=== PATIENT | female | born 1995 | race Caucasian/White ===

== ENCOUNTER 2023-01-30 14:46 | Outpatient (CLI) | payer OTHER, SELFPAY ==
[2023-01-30 18:53] LABS: Chlamydia DNA Amplified* NOT DETECTED (No Detected); GC DNA Amplified* NOT DETECTED (No Detected)
== END 2023-01-30 14:47 | disposition home or self-care (01) ==
PROVIDERS: Visit Provider Physician Assistant
DX: Z34.91 Encounter for supervision of normal pregnancy, unspecified, first trimester (principal); Z3A.12 12 weeks gestation of pregnancy
CPT/HCPCS: 76801; 82565; 82570; 84156; 84450; 84460; 84520; 86592; 86703; 86762; 86787; 86803; 86850; 86900; 86901; 87086; 87340; 87491; 87591

== ENCOUNTER 2023-02-11 07:06 | Outpatient (CLI) | payer OTHER, SELFPAY ==
--- NOTE | 2023-02-11 07:15 | CRLHL7_ITS ---
For Patients: As a result of the Century Cures Act, medical imaging exams and procedure reports are released immediately into your electronic medical record. You may view this report before your referring provider. If you have questions, please contact your health care provider. INDICATION: FOLLOW UP ENLARGED YOLK SAC COMPARISON: 8.25.23 TECHNIQUE: Real-time ag-scale imaging of the pelvis was performed. FINDINGS: Sonographic imaging demonstrates a single living intrauterine gestation. The embryo demonstrates a regular cardiac rate measuring 150 beats per minute. The embryo`s crown-rump length measurement of 7.3 cm corresponds to a gestational age of 13 weeks 3 days with a sonographic due date of 08/16/2023. The yolk sac is not visualized. There are no gross abnormalities noted within the embryo at this early state of development. The gestational sac has a normal appearance. There is no evidence of a perigestational hemorrhage. The amount of fluid within the sac appears appropriate for gestational age. The cervix is closed. The myometrium appears normal. 2.3 cm corpus luteal cyst right ovary. There are no suspicious fluid collections noted in the cul-de-sac. IMPRESSION: Gestational age calculated at 13 weeks 3 days with a sonographic due date of 08/16/2023. Yolk sac not visualized on today`s study. Dictated by Michael Trujillo MD @ 02/11/2023 9:28:16 AM (Electronically Signed)
== END 2023-02-11 07:07 | disposition home or self-care (01) ==
PROVIDERS: Visit Provider Physician Assistant
DX: Z34.91 Encounter for supervision of normal pregnancy, unspecified, first trimester (principal); Z3A.13 13 weeks gestation of pregnancy
CPT/HCPCS: 76816

== ENCOUNTER 2023-04-01 12:03 | Outpatient (CLI) | payer OTHER, SELFPAY ==
--- NOTE | 2023-04-01 12:15 | CRLHL7_ITS ---
For Patients: As a result of the Century Cures Act, medical imaging exams and procedure reports are released immediately into your electronic medical record. You may view this report before your referring provider. If you have questions, please contact your health care provider. INDICATION: Evaluate anatomy. COMPARISON: 02/11/2023 TECHNIQUE: Real time ag scale imaging of the fetus was performed as well as color Doppler analysis of the umbilical vessels. FINDINGS: Sonographic imaging demonstrates a single living intrauterine gestation. Fetus demonstrates a regular cardiac rate of 145 beats per minute. Fetus has a vertex position. The placenta lies posteriorly without evidence of placenta previa. Edge of the placenta is located 6.1 cm from the internal cervical os. Amniotic fluid volume appears normal. Single deepest vertical pocket: 4.6 cm. The cervix is closed and measures 3.9 cm in length. The composite ultrasound gestational age is calculated at 20 weeks 1 day with an estimated sonographic due date of 08/18/2023. The estimated weight is 316 grams which lies at the 23rd %. The following biometric measurements were obtained: Biparietal diameter: 4.6 cm/19 weeks 6 days 34th% Head circumference: 17.5 cm/20 weeks 0 days 31st% Abdominal circumference: 14.4 cm/19 weeks 5 days 25th% Femur length: 3.2 cm/19 weeks 6 days 30th% The HC/AC ratio measures: 1.22 range (1.07-1.25) On anatomic survey, there is a normal appearance of the cerebral ventricles, cavum septi pellucidi, cisterna magna and cerebellum. The nose, lips, and facial profile appear normal. The cervical, thoracic and lumbar spine are well visualized and appear normal. There is a normal four-chamber heart view and the left and right ventricular outflow tracts appear normal. The diaphragm and stomach appear normal. The kidneys and bladder also appear normal. There is a normal three-vessel cord and cord insertion site. The four extremities appear normal. IMPRESSION: Normal OB ultrasound exam with concordance of clinical and sonographic dating. No intrinsic abnormalities noted on anatomic survey. Dictated by Michael Trujillo MD @ 04/03/2023 8:52:53 AM (Electronically Signed)
== END 2023-04-01 12:04 | disposition home or self-care (01) ==
LOC: US 12:03
PROVIDERS: Visit Provider Obstetrics & Gynecology
DX: Z34.92 Encounter for supervision of normal pregnancy, unspecified, second trimester (principal); Z3A.20 20 weeks gestation of pregnancy
CPT/HCPCS: 76805